=== PATIENT | female | born 1940 | race Caucasian/White ===

== ENCOUNTER → 2017-01-02 | Outpatient (CLI) | payer MEDICARE, OTHER ==
[~2017-01-02] MED LIST: ATORVASTATIN 4040 MG PO; CALCIUM WITH VI1 TAB PO; ENABLEX15 MG PO; FENOFIBRATE160 MG PO; GABAPENTIN100 M1 PO; ISOSORBIDE DINI30 MG PO; KLOR-CON 88 MEQ PO; LASIX 20MG. TAB20 MG PO; LASIX 40MG. TAB40 MG PO; LEVOTHYROXIN0.112 MG PO; LOSARTAN POTASS50 MG PO; Novolog100 U/ML SC; OMEPRAZOLE20 MG PO; OXYBUTYNIN CHLO10 MG PO; PRADAXA150 MG PO; PROZAC 20MG CAP20 MG PO; REGLAN 5MG TABLE5 MG PO; TRAMADOL50 M1 PO; VITAMIN B121000 MC2 SL; VITAMIN D31000 IU PO; XARELTO20 MG PO; ZYRTEC 10MG TAB10 MG PO; [UNRECOGNIZED DRUG - OTHER] IJ
== END ==
LOC: LAB 10:27
DX: E03.9 Hypothyroidism, unspecified (principal)

== ENCOUNTER 2017-01-12 16:39 | Observation (INO) | payer MEDICARE, OTHER ==
[~2017-01-12] VITALS: Ht 162.6 cm; Wt 104.8 kg
[~2017-01-12 16:39] MED LIST changes: -LEVOTHYROXIN0.112 MG PO; +LEVOTHYROXINE0.1 MG PO
[2017-01-12 16:40] VITALS: BP 155/78
--- NOTE | 2017-01-12 17:09 | Emergency Room Report ---
History of Present Illness Time Seen by [id number] Presenting Problem in Triage Pt arrived:Wheelchair Presenting Problem:SENT FROM PCP FOR CARDIAC WORKUP PT WITH RIGHT SIDE CHEST PAIN AND RIGHT SIDE SHOULDER PAIN X 2 DAYS Onset of symptoms date/time:/ or onset unknown for:MEDICAL HX UNKNOWN Treatment Prior to Arrival: SEEN BY PCP LEGAL COMPLIANCE OFFICER Provided by:PHYSICIAN Sepsis Risk Assessment: Temp: 97.8 B/P: 155/78 MAP: 103 Pulse: 84 Resp: 18 Recent fever? N Clinical Suspician of Infection? N Mental Status: 1 - Regular (Normal Baseline) Sepsis Risk:Low Sepsis Risk Have you (or family members/close friends) recently traveled outside the [place]? N If Yes, where/when: Have you had exposure to infectious disease within the past month? TB? Other? Specify: Source patient, RN notes reviewed, family, RN/MD Exam Limitations no limitations Comment This is an 76-year-old female patient sent by Cici in Dr Arias's office to the emergency room for evaluation of possible pulmonary embolism. Patient arrived to family physician's office complaining with RIGHT shoulder and upper abdominal pain radiating into the mid chest with the past 2 days, denying any shortness of breath, diaphoresis. Patient is currently on Xarelto due to a DVT of the LEFT lower extremity diagnosed a year ago. Patient denies any previous cardiac workup, any cardiac problems. ALLERGIES Coded Allergies: naproxen (Mild, 01/12/17) Uncoded Allergies: IV DYE (Mild, 01/12/17) Home Medications Reported Medications LEVOTHYROXINE SOD (Synthroid) 0.15 MG PO DAILY INSULIN ASPART (Novolog) 50 UNITS SC DAILY INSULIN ASPART (Novolog) 40 UNITS SC QHS MISCELLANEOUS (UNKNOWN MEDICATION) (Unknown Dose) TP WEEKLY Furosemide (Lasix 20MG) 20 MG PO DAILY #30 TAB Isosorbide Dinitrate 30 MG PO DAILY Fenofibrate (Fenofibrate 160MG (GEQ: Lofibra)) 160 MG PO DAILY Losartan Potassium (Losartan 50MG) 50 MG PO Potassium Chloride (Klor-Con 8) 8 MEQ PO DAILY Gabapentin (Gabapentin 100MG) 100 MG PO DAILY Atorvastatin Calcium (Atorvastatin 40MG) 40 MG PO QHS Oxybutynin Chloride (Oxybutynin Chloride ER) 10 MG PO DAILY Omeprazole (Omeprazole 20MG) 20 MG PO Q12H #60 CAP Cyanocobalamin (Vitamin B12) 1,000 MCG SL DAILY CHOLECALCIFEROL (VITAMIN D3) (Vitamin D) 1,000 IUNITS PO DAILY #100 TAB Cetirizine Hcl (All Day Allergy) 10 MG PO DAILY Fluoxetine Hcl (Prozac 20MG Capsule(Generic)) 20 MG PO DAILY Rivaroxaban (Xarelto) 20 MG PO DAILY Calcium/Cholecalciferol/Sodi (Calcium With Vitamin D 600 MG-400 Iu-5 MG) 1 TAB PO DAILY Metoclopramide Hcl (Reglan) 5 MG PO BID History Medical History General Hypertension? Yes Hyperlipidemia? Yes Thyroid Problems? Yes Diabetes? Yes Insulin Dependent: Yes Insulin Pump: No Home FSBS? Yes Immunization Hx Ped.Immunizations UTD Yes DT/Tetanus Unknown Surgical Hx Previous Surgery?Y FEMALE BLADDER TIE UP Family History Family Hx Diabetes Yes Hyperlipidemia Yes Cancer Yes TB Yes Social History Smoking Hx Smoker: Never Smoker Tobacco: No Type N/A Are you/the child exposed to second-hand smoke: No Alcohol Alcohol: No Review of Systems All Other Systems Reviewed and Negative Cardiovascular chest pain Musculoskeletal joint pain (right shoulder pain) Physical Exam Vital Signs Vital Signs Date Time Temp Pulse Resp B/P Pulse O2 O2 Flow FiO2 Ox Delivery Rate 01/12 1854 84 18 151/92 97 01/12 1852 98.2 84 18 151/92 97 ROOM AIR 01/12 1843 98.1 78 18 138/60 01/12 1805 98.1 78 18 138/60 94 01/12 1748 98.7 75 20 116/83 97 01/12 1640 97.8 84 18 155/78 99 General Appearance normal appearance, WD/WN, no apparent distress Respiratory Status Yes: trachea midline, chest symmetrical, non tender chest. No: respiratory distress. Lung Sounds bilateral: normal breath sounds, lungs clear. 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 No Comment 1699-case discussed with Dr. Arias, advised of patient's presentation and findings, need for hospitalization given the fact patient is ALLERGIC to IV contrast and she will require a VQ scan in the morning. Care transferred to Dr. Arias at this time. I will write temporary admission orders per hospital protocol at this time. Once patient arrived to floor, the unit nurse will contact Dr. Arias in order to obtain full inpatient admission orders. Results/Orders Laboratory Tests 01/12/171814: Creatine Kinase 220 H, CK-MB (CK-2) Rel Index 1.6, CK and CKMB Interp 3.5, Troponin I < 0.02 01/12/171654: Sodium 141, Potassium 4.0, Chloride 106, Carbon Dioxide 25, BUN 17, Creatinine 1.4 H, Estimated Creat Clear 55, Estimated GFR (MDRD) 36 L, Glucose 232 H, Calcium 9.3, Total Bilirubin 0.3, AST 20, ALT 24, Alkaline Phosphatase 75, Creatine Kinase 198 H, CK-MB (CK-2) Rel Index 2.1, CK and CKMB Interp 4.2 H, Troponin I < 0.02, B-Natriuretic Peptide 88, Total Protein 7.4, Albumin 3.8, Globulin 3.6 H, Albumin/Globulin Ratio 1.1, Amylase 48, Lipase 444 H, D-Dimer 453 *H, WBC 7.6, RBC 4.58, Hgb 14.0, Hct 42.4, MCV 92.6, RDW 13.8, Plt Count 323 , MPV 7.4, Gran % 52.0, Gran # 4.0, Lymphocytes % 39.1, Monocytes % 6.1, Eosinophils % 2.1, Basophils % 0.7, Lymphocytes # 3.0, Monocytes # 0.5, Eosinophils # 0.2, Basophils # 0.1, PUBS MCHC 33.1, MCH 30.7 Current Medication Orders Sig/Abelardo Start time Last Medication Dose Route Stop Time Status Admin Diagnostic Test (Pha) 1 EACH W/MEALS&HS 01/12 2100 AC 01/12 FS 03/13 Insulin Human [rDNA See Dose W/MEALS&HS 01/12 2100 AC 01/12 origin] Insts (1) SC 2030 Sodium Chloride 10 ML PRN PRN 01/12 1645 AC IV Dose Instructions: (1)Insulin Human [rDNA origin]: SEE ADMIN CRITERIA FOR LOW INTENSITY SS Orders Procedure Date/time Status NUC LUNG VENT & PERFUSION 01/13 0800 Active CARDIAC ENZYMES 01/12 2100 Complete ADMITTED PT IS ACTUALLY IN BED 01/12 1853 Active CARDIAC ENZYMES 01/12 1851 Complete Decision to admit 01/12 1715 Active 12 LEAD EKG-BESSON (INITIAL) 01/12 1644 Active ELECTROCARDIOGRAM REQUEST 01/12 1644 Active IV SALINE LOCK 01/12 1644 Active LIPASE 01/12 1644 Complete D-DIMER 01/12 1644 Complete CBC WITH AUTO DIFF 01/12 1644 Complete CARDIAC ENZYMES 01/12 1644 Complete CHEM 12 PROFILE 01/12 1644 Complete BRAIN NATRIURETIC PEPTIDE 01/12 1644 Complete AMYLASE 01/12 1644 Complete ADMIT PATIENT 01/12 UNK Active PULSE OXIMETRY REQUEST 01/12 UNK Active VITAL SIGNS 01/12 UNK Active SUPERVISOR VENDOR QUALITY 01/12 UNK Active POM NURSE FLETCHER HOSE ORDER 01/12 UNK Active CODE STATUS 01/12 UNK Active PATIENT ACTIVITY ORDER 01/12 UNK Active CM/EKG CM/bog worker Rhythm Normal Sinus Rhythm Rate 88 Ectopy No Comments No acute ischemic changes EKG rate, NSR, rhythm, no evid. of ischemic chgs, no ectopy, normal QRS, normal OH, normal EKG, no EKG for comparison, non-spec. ST/Twave chgs, ST elevation, ST depression, LBBB, RBBB, ectopy, abnormal Q waves XRAY/CT/US XRAY/CT/US XRAY chest XR interpretation by reviewed by me Xray Results no infiltrates, normal heart size, normal lung inflation allen BEN Score for N-Stemi/Angina BEN N-STEMI SCORE BEN N-STEMI SCORE Response Value Age of patient 65 yrs or more 1 Number of risk factors for CAD Presence of less than 3 0 Prior coronary artery stenosis (seen in angiography) Less than 50% 0 ST-Segment deviation on ECG (>1 min) Absent 0 Prior aspirin intake No ASA in the last 7 days 0 Severe anginal chest pain 2 or more episodes/24hr 1 Elevated cardiac markers(CK-MB or troponin) Absent 0 Total 2 Risk Stratification 0-2= Low Risk Patients Departure Departure Time of Disposition 1708 Disposition Still a Patient Clinical Impression Primary Impression: Chest pain Qualifiers: Chest pain type: unspecified Qualified Code: R07.9 - Chest pain, unspecified Condition STABLE Referrals Keith Arias MD (Family) ED Critical Care Critical Care No at 0059
[2017-01-12 17:11] LABS: LYMPH % 39.1 % (10-50.0)
--- OUTSIDE RECORDS SUMMARY | 2017-01-12 17:21 | External Medical Summary Rpt | CCD ---
Author Author , PELON Organization PEL[employer] Address Unknown Phone [email or web address] Purpose Continuity of Care Document - 01-02-2017 through 2016 Problems Code Diagnosis DOS Provider Status E03.9 HYPOTHYROID ISM, UNSPECIFIED E06.9 THYROIDITIS , UNSPECIFIED Z12.31 ENCNTR SCREEN MAMMOGRAM FOR MALIGNANT NEOPLASM OF BREAST Z78.0 ASYMPTOMATI C MENOPAUSAL STATE Results Labs Lab Lab Date Result Refere Interp Status Commen Order Detail nces retati t Range on Serum or plasma thyroid stimulating horm (01-09-2017 14:24) Serum 2 = 8.98 0.358-3 complet or 017 uIU/ml .740 ed plasma 14:24 thyroid stimula ting horm Serum or plasma free thyroxine (T4) justin (01-09-2017 14:24) Serum 2 = 1.18 0.76-1. complet or 017 ng/dL 46 ed plasma 14:24 free thyroxi ne (T4) justin Thyroxine (01-02-2017 10:30) Thyroxi = 17.3 4.7-13. complet ne 017 ug/dl 3 ed 10:30 Serum or plasma thyroid stimulating horm (01-02-2017 10:30) Serum 2 = 11.30 0.358-3 complet or 017 uIU/ml .740 ed plasma 10:30 thyroid stimula ting horm
--- OUTSIDE RECORDS SUMMARY | 2017-01-12 17:21 | External Medical Summary Rpt | CCD ---
Author Author , PELON BIRD Address Unknown Phone [email or web address] Immunization Name Date Rout CVX Reac Dose Comm Prov Is Faci e tion ent ider Refu lity Give sed n Infl 10-1 Intr 135 0.5 Hist D049 No D049 uenz 2-20 amus mL oric 01 01 a, 17 cula al High r Info rmat Dose ion - Sour ce Unsp ecif ied Tdap 06-1 Intr 115 0.5 Hist D049 No D049 , 6-20 amus mL oric 01 01 Adso 17 cula al rbed r Info rmat ion - Sour ce Unsp ecif ied
--- OUTSIDE RECORDS SUMMARY | 2017-01-12 17:21 | External Medical Summary Rpt | CCD ---
Author Author [employer] Organization [employer] Address Unknown Phone Unavailable Purpose Continuity of Care Document - through 2016
--- OUTSIDE RECORDS SUMMARY | 2017-01-12 17:21 | External Medical Summary Rpt | CCD ---
Author Author , PELON Organization PEL[employer] Address Unknown Phone [email or web address] Purpose Continuity of Care Document - 01-02-2017 [...]
--- OUTSIDE RECORDS SUMMARY | 2017-01-12 17:21 | External Medical Summary Rpt ---
Author Author PELON Henderson, HARISVINCENT [facility] Organization [employer] Address Unknown Phone Unavailable Results Thyroxine (T4) free [Mass/volume] in Serum or Plasma Observa Value Referen Units Interpr Notes Date tion ce etation Range Thyroxine 0.76 - ng/dL Normal No Dec 13 (T4) 1.46 informati 2017 2:24 free on in PM [Mass/vol source ume] in data Serum or Plasma Thyrotropin [Units/volume] in Serum or Plasma Observa Value Referen Units Interpr Notes Date tion ce etation Range Thyrotrop 0.358 - uIU/ml High No Dec 13 in 3.740 informati 2016 2:24 [Units/vo on in PM lume] in source Serum or data Plasma Thyroxine (T4) [Mass/volume] in Serum or Plasma Observa Value Referen Units Interpr Notes Date tion ce etation Range Thyroxine 4.7 - ug/dl High No Dec 6 (T4) 13.3 informati 2016 [Mass/vol on in 10:30 AM ume] in source Serum or data Plasma Thyrotropin [Units/volume] in Serum or Plasma Observa Value Referen Units Interpr Notes Date tion ce etation Range Thyrotrop 0.358 - uIU/ml High No Dec 6 in 3.740 informati 2016 [Units/vo on in 10:30 AM lume] in source Serum or data Plasma
--- OUTSIDE RECORDS SUMMARY | 2017-01-12 17:21 | External Medical Summary Rpt ---
Author Author PELON Henderson, HARISVINCENT [employer] Organization [employer] Address Unknown Phone Unavailable [...]
--- OUTSIDE RECORDS SUMMARY | 2017-01-12 17:21 | External Medical Summary Rpt | CCD ---
Author Author , PELON BIRD Address Unknown Phone [email or web address] Immunization Name Date Rout CVX Reac Dose [...]
[2017-01-12 17:33] LABS: BUN 17 mg/dL (7-18)
[2017-01-12 17:37] LABS: GFR (ESTIMATED) 36 ML/MIN (59-)
--- OUTSIDE RECORDS SUMMARY | 2017-01-12 17:44 | External Medical Summary Rpt | CCD ---
Author Author , PELON BIRD Address Unknown Phone [email or web address] Immunization Name Date Rout CVX Reac Dose [...]
--- OUTSIDE RECORDS SUMMARY | 2017-01-12 17:44 | External Medical Summary Rpt | CCD ---
Author Author , PELON BIRD Address Unknown Phone [email or web address] Immunization Name Date Rout CVX Reac Dose [...]
--- OUTSIDE RECORDS SUMMARY | 2017-01-12 17:44 | External Medical Summary Rpt ---
Author Author PELON Henderson, HARISVINCENT [employer] Organization [employer] Address Unknown Phone Unavailable [...]
--- OUTSIDE RECORDS SUMMARY | 2017-01-12 17:44 | External Medical Summary Rpt ---
Author Author PELON Henderson, HARISVINCENT [employer] Organization [employer] Address Unknown Phone Unavailable [...]
--- OUTSIDE RECORDS SUMMARY | 2017-01-12 17:44 | External Medical Summary Rpt | CCD ---
Author Author , PELON Organization PEL[employer] Address Unknown Phone [email or web address] Purpose Continuity of Care Document - 01-02-2017 through 2016 Problems Code Diagnosis DOS Provider Status E03.9 HYPOTHYROID ISM, UNSPECIFIED E06.9 THYROIDITIS , UNSPECIFIED Z12.31 ENCNTR SCREEN MAMMOGRAM FOR MALIGNANT NEOPLASM OF BREAST Z78.0 ASYMPTOMATI C MENOPAUSAL STATE Results Labs Lab Lab Date Result Refere Interp Status Commen Order Detail nces retati t Range on Serum or plasma free thyroxine (T4) justin (01-09-2017 14:24) Serum 2 = 1.18 0.76-1. complet or 017 ng/dL 46 ed plasma 14:24 free thyroxi ne (T4) justin Serum or plasma thyroid stimulating horm (01-09-2017 14:24) Serum 2 = 8.98 0.358-3 complet or 017 uIU/ml .740 ed plasma 14:24 thyroid stimula ting horm Thyroxine (01-02-2017 10:30) Thyroxi = 17.3 4.7-13. complet ne 017 ug/dl 3 ed 10:30 Serum or plasma thyroid stimulating horm (01-02-2017 10:30) Serum 01-02-2 = 11.30 0.358-3 complet or 017 uIU/ml .740 ed plasma 10:30 thyroid stimula ting horm
--- OUTSIDE RECORDS SUMMARY | 2017-01-12 17:44 | External Medical Summary Rpt | CCD ---
Author Author , PELON Organization PELON Address Unknown Phone [email or web address] Purpose Continuity of Care Document - 01-02-2017 [...]
--- NOTE | 2017-01-12 18:28 | RADIOLOGY REPORT PS360 ---
CHEST(2 VIEWS-NOT PORTABLE) HISTORY: Right-sided chest pain RIGHT SIDE CP ORDERING PHYSICIAN: Keith Arias MD PATIENT AGE: 76 years COMPARISON: 08/14/2015 FINDINGS: The cardiomediastinal silhouette and pulmonary vascularity are within normal limits. Atelectatic or fibrotic changes are present in the lower lobes, right middle lobe and lingula. No lobar consolidation or collapse.. No acute bony abnormalities. IMPRESSION: Bilateral lower lobe atelectasis/fibrosis otherwise negative
[2017-01-12 18:43] VITALS: BP 138/60
[2017-01-12 18:52] VITALS: BP 151/92
[2017-01-12] MEDS ORDERED: Novolog100 U/ML SC ×2 (18:55)
--- NOTE | 2017-01-12 19:21 | PHARMACY CLINIC NOTE ---
Patient Demographics Patient Demographics Admission date: 01/12/17 Date: 01/12/17 Time: 1920 Allergies Coded Allergies: naproxen (Mild, 01/12/17) Uncoded Allergies: IV DYE (Mild, 01/12/17) HEIGHT- FT: 5 IN: 4.00 K.809 VTE General Information Labs: Laboratory Tests 01/12 1655 Hematology Hgb (12.2 - 16.2 g/dL) 14.0 Hct (37.0 - 47.0 %) 42.4 Plt Count (142 - 424 K/mm3) 323 Disclaimer The following section includes nursing documentation that has been pulled in for pharmacy review. Patient's VTE score: 2 Patient's VTE Risk: VERY LOW RISK Clinical trial participant? No VTE prophylaxis NQF [id number] VTE prophylaxis ordered? Yes Type of prophylaxis/treatment: FLETCHER at 1921
[2017-01-12 20:01] VITALS: BP 158/87
[2017-01-13 00:02] VITALS: BP 109/59
[2017-01-13 04:00] VITALS: BP 106/64
[2017-01-13 07:52] VITALS: BP 142/57
[2017-01-13] MEDS ORDERED: LOSARTAN POTAS100 MG PO (08:32)
--- NOTE | 2017-01-13 08:32 | HISTORY AND PHYSICAL REPORT ---
History and Physical ([facility]) Date of admission: 01/12/17 Chief complaint: Chest pain History: History of Present Illness: Ms. Last is a 76yo female with a hx of diabetes, HLP, HTN, hypothyroidism, intermittent afib, and a hx of a left leg DVT. She presented to the office yesterday having right sided chest pain. She stated she had been having pain in her right shoulder blade for two days and then yesterday afternoon, she began having pain in the epigastric area and the entire right side of the chest radiating around to the back. Her sats were normal, however she felt SOA. She was sent to the ER for evaluation to r/o an AL and PE. She was admitted for observation and treatment. Past Medical History: Medical History: CAD? No Angina: No AL: No Hypertension? Yes Hyperlipidemia? Yes CHF? Yes DVT? Yes PE? No COPD? No Asthma? No Anemia? No GERD? Yes Gastric ulcers? No Thyroid Problems? Yes Hypothyroidism? Yes CVA? No Seizures? No Diabetes? Yes Insulin Dependent: Yes Insulin Pump: No Home FSBS? Yes Renal Insuffiency? No Stones? No GB Disease: No Hepatitis? No Sickle Cell Disease? No Migraines? No Cataracts? Yes Anxiety? Yes Depression? Yes Cancer? No Surgical history: Previous Surgery?Y 1. MONTSERRAT 2. Cyst in vaginal area 3. C-scope 4. Cataracts Medications: Reported Medications Omeprazole (Omeprazole 20MG) 20 MG PO DAILY Losartan Potassium (Losartan 100MG) 100 MG PO DAILY Furosemide (Lasix 40MG) 40 MG PO BID EXENATIDE MICROSPHERES (Bydureon Pen) 2 MG SC WEEKLY Pravastatin Sodium (Pravachol) 80 MG PO QHS Metoclopramide HCl (Reglan) 10 MG PO BID Solifenacin Succinate (Vesicare) 10 MG PO DAILY ROPINIROLE HCL (Requip 0.25MG) 0.25 MG PO QHS Aspirin (Adult Low Dose Aspirin EC) 81 MG PO DAILY DILTIAZEM HCL (Diltiazem 24HR ER) 180 MG PO DAILY LEVOTHYROXINE SOD (Synthroid) 0.15 MG PO DAILY INSULIN ASPART (Novolog) 50 UNITS SC DAILY INSULIN ASPART (Novolog) 40 UNITS SC QHS Isosorbide Dinitrate 30 MG PO DAILY Fenofibrate (Fenofibrate 160MG (GEQ: Lofibra)) 160 MG PO DAILY Potassium Chloride (Klor-Con 8) 8 MEQ PO DAILY Cyanocobalamin (Vitamin B12) 1,000 MCG SL DAILY CHOLECALCIFEROL (VITAMIN D3) (Vitamin D) 1,000 IUNITS PO DAILY #100 TAB Cetirizine Hcl (All Day Allergy) 10 MG PO DAILY Fluoxetine Hcl (Prozac 20MG Capsule(Generic)) 20 MG PO DAILY Calcium/Cholecalciferol/Sodi (Calcium With Vitamin D 600 MG-400 Iu-5 MG) 1 TAB PO DAILY Allergies: Coded Allergies: naproxen (Mild, 01/12/17) Uncoded Allergies: IV DYE (Mild, 01/12/17) Family History: Family history: Postive for: CAD, DM, HTN, cancer. Negative for: stroke. Social History: Smoking Hx Tobacco: No Smoker: Never Smoker Type: N/A Packs/day: N/A Are you exposed to second hand No Alcohol: Alcohol: No Hx of Drug Use: Drug Use? No Review of Systems: Constitutional No: fatigue, lethargy, malaise, weak. ENT No: nasal congestion, sore throat. Cardiovascular Positive for: chest pain. No: edema, palpitations. Respiratory Positive for: shortness of air. No: productive cough (sputum), wheezing. GI Positive for: abdominal pain. No: diarrhea, nausea, vomitting. (female) No: frequency, hematuria. Neurological No: headache, syncope, weakness. Musculoskeletal No: extremity pain, joint pain, myalgias. Physical Exam: Vital signs: 1ST Vital Signs Result Date Time Pulse Ox 99 01/12 1640 B/P 155/78 01/12 1640 Temp 97.8 01/12 1640 Pulse 84 01/12 1640 Resp 18 01/12 1640 O2 Delivery ROOM AIR 01/13 1852 Exam: General appearance: alert, awake, no acute distress Eyes: EOM's w/normal ROM, PERRLA ENT: nose normal, pharynx normal, dry mucous membranes Neck: non-tender, full range of motion, supple Cardiovascular: regular rate & rhythm Respiratory: clear to auscultation ABD: non-distended, normal bowel sounds, no rebound, soft, no guarding, ttp in the epigastric area and RUQ Extremities: trace pretibial edema bilaterally Musculoskeletal: equal muscle strength, motor intact, sensation intact Skin: normal color Neuro: normal mood/affect, oriented, speech clear Lab data: Labs: Laboratory Tests 01/13/17 0622: POC Glucose 141 H 01/12/17 2100: Creatine Kinase 180, CK-MB (CK-2) Rel Index 2.1, CK and CKMB Interp 3.7 H, Troponin I < 0.02 01/12/172026: POC Glucose 166 H 01/12/17 1815: Creatine Kinase 220 H, CK-MB (CK-2) Rel Index 1.6, CK and CKMB Interp 3.5, Troponin I < 0.02 01/12/17 1655: Sodium 141, Potassium 4.0, Chloride 106, Carbon Dioxide 25, BUN 17, Creatinine 1.4 H, Estimated Creat Clear 55, Estimated GFR (MDRD) 36 L, Glucose 232 H, Calcium 9.3, Total Bilirubin 0.3, AST 20, ALT 24, Alkaline Phosphatase 75, Creatine Kinase 198 H, CK-MB (CK-2) Rel Index 2.1, CK and CKMB Interp 4.2 H, Troponin I < 0.02, B-Natriuretic Peptide 88, Total Protein 7.4, Albumin 3.8, Globulin 3.6 H, Albumin/Globulin Ratio 1.1, Amylase 48, Lipase 444 H, D-Dimer 453 *H, WBC 7.6, RBC 4.58, Hgb 14.0, Hct 42.4, MCV 92.6, RDW 13.8, Plt Count 323 , MPV 7.4, Gran % 52.0, Gran # 4.0, Lymphocytes % 39.1, Monocytes % 6.1, Eosinophils % 2.1, Basophils % 0.7, Lymphocytes # 3.0, Monocytes # 0.5, Eosinophils # 0.2, Basophils # 0.1, PUBS MCHC 33.1, MCH 30.7 Radiology results: Results: CXR - Bilateral lower lobe atelectasis/fibrosis otherwise negative Diagnosis(es): 1. Chest pain Status: Acute 2. Abdominal pain Status: Acute 3. Elevated lipase Status: Acute 4. Elevated d-dimer Status: Acute 5. Elevated CPK Status: Acute 6. Diabetes 7. HTN (hypertension) 8. Hyperlipidemia Plan: CPK has normalized. Will recheck lipase. Will also get a RUQ U/S. She is scheduled for a VQ today to r/o a PE. TI has been normal. (Richelle Aguirre) Date of admission: 01/12/17 Diagnosis(es): 1. Chest pain Status: Acute 2. Abdominal pain Status: Acute 3. Elevated lipase Status: Acute 4. Elevated d-dimer Status: Acute 5. Elevated CPK Status: Acute 6. Diabetes 7. HTN (hypertension) 8. Hyperlipidemia Plan: Pt seen and examined. Concur with above assessment and plan. (Keith Arias MD) at 1112
[2017-01-13] MEDS ORDERED: LASIX 40MG. TAB40 MG PO (08:33)
[2017-01-13] MEDS ORDERED: BYDUREON PEN2 MG SC (08:35)
[2017-01-13] MEDS ORDERED: PRAVACHOL80 M1 PO (08:44)
[2017-01-13] MEDS ORDERED: REGLAN10 M2 PO (08:45)
[2017-01-13] MEDS ORDERED: VESICARE10 MG PO (08:46)
[2017-01-13] MEDS ORDERED: REQUIP0.25 MG PO (08:47)
[2017-01-13] MEDS ORDERED: ADULT LOW DOSE81 MG PO (08:48)
[2017-01-13] MEDS ORDERED: DILTIAZEM HCL180 MG PO (08:48)
[2017-01-13 09:52] VITALS: BP 142/57
--- NOTE | 2017-01-13 12:50 | RADIOLOGY REPORT PS360 ---
US RUQ-(ABD LTD)1ORGAN/QUAD/FU HISTORY: EPIGASTRIC AND RUQ PAIN Patient Age: 76 years: Female Ordering Physician: Keith Arias MD TECHNIQUE: Ultrasound right upper quadrant COMPARISON : CT abdomen pelvis 07/01/2014 FINDINGS Pancreas. Unremarkable LIVER... No biliary ductal dilatation. Portal vein unremarkable There is a focal slightly hyperechoic area anterior right lobe measuring up to 3.3 cm cm. I suspect this was vaguely present in retrospect on the prior CT 07/01/2014. Hypoechoic areas tend to be benign features and given its likely stability most likely hemangioma. A CT abdomen with contrast hemangioma protocol could further confirm such Common duct. Normal diameter 4 mm at hilum of liver. GALLBLADDER: 1.5 cm cm shadowing gallstone at dependent gallbladder. No gallbladder wall thickening. The gallbladder normal size. RIGHT KIDNEY.. Normal 10.4 cm length. No hydronephrosis nor mass IMPRESSION: Cholelithiasis. 1.5 cm gallstone evident Common duct normal Liver.: Focal Slight hyperechoic area right lobe measuring up to 3.3 cm anterior right lobe. Likely vaguely evident retrospect on 2015 CT. And fairly stable. . Suspect most likely benign hemangioma liver.. (CT hemangioma protocol with and without contrast would confirm)..
--- NOTE | 2017-01-13 14:41 | RADIOLOGY REPORT PS360 ---
[facility]C LUNG VENT PERFUSION HISTORY: CP,ALLERGY TO IV DYE; RULE OUT DVT Patient Age: 76 years: Female Ordering Physician: Keith Arias MD TECHNIQUE: Ventilation scan initially performed utilizing 37.5 mCi Tc DTPA and normal saline delivered is aerosol Perfusion scan was then performed utilizing MAA. The first dose of MAA injected infiltrative into the patient's arm 7.99 mCi. 11:47 AM. More compresses placed over this area to facilitate uptake. I would note that in a a is a macro aggregate albumin protein(and not a simple water-soluble contrast agent) and thus this could conceivably induce a a delayed inflammatory focus as the patient's could react to this albumin protein... The technologist has notified nursing staff of such A second dose MAA was ordered with 8.64 mCi MAA injected IV. 1422 hours. This yielded satisfactory images. COMPARISON : Chest PA and lateral 01/12/2017 FINDINGS Ventilation scan shows no significant findings. There is some activity within the stomach on this study and some minor central clumping which can be seen with central airway inflammation toward changes/bronchitis but nonspecific. Perfusion scan shows no significant perfusion defects. No evidence of pulmonary embolism. No significant ventilation/perfusion mismatch areas identified. Normal-appearing perfusion scan. IMPRESSION: No evidence of pulmonary embolism. No perfusion defects. Normal appearing perfusion scan. No ventilation/perfusion mismatch *Note. The patient's initial MAA radio labeled macroaggregated albumin IV dose infiltrated into patient's arm adjacent to the injection site. Please watch for any delayed inflammatory response about injection site resulting from this albumin protein. Thank you
[2017-01-13 15:32] VITALS: BP 163/67
[2017-01-13 16:41] VITALS: BP 163/67
--- NOTE | 2017-01-17 21:08 | DISCHARGE SUMMARY STANDARD ---
Discharge Summary ([facility]2) Date of admission: 01/12/17 Date of discharge: 01/13/17 Problem List: 1. Chest pain 2. Abdominal pain 3. Elevated lipase 4. Elevated d-dimer 5. Elevated CPK 6. Diabetes 7. HTN (hypertension) 8. Hyperlipidemia History of present illness: Ms. Last is a 76yo female with a hx of diabetes, HLP, HTN, hypothyroidism, intermittent afib, and a hx of a left leg DVT. She presented to the office of A having right sided chest pain. She stated she had been having pain in her right shoulder blade for two days and then she began having pain in the epigastric area and the entire right side of the chest radiating around to the back. Her sats were normal, however she felt SOA. She was sent to the ER for evaluation to r/o an MD and PE. She was admitted for observation and treatment. Exam on admission: General appearance: alert, awake, no acute distress Eyes: EOM's w/normal ROM, PERRLA ENT: nose normal, pharynx normal, dry mucous membranes Neck: non-tender, full range of motion, supple Cardiovascular: regular rate & rhythm Respiratory: clear to auscultation ABD: non-distended, normal bowel sounds, no rebound, soft, no guarding, ttp in the epigastric area and RUQ Extremities: trace pretibial edema bilaterally Musculoskeletal: equal muscle strength, motor intact, sensation intact Skin: normal color Neuro: normal mood/affect, oriented, speech clear Hospital Course: The patient's CXR showed nothing acute. Her cardiac enzymes were all normal. Her D-dimer was elevated and d/t her contrast allergy she had to have a VQ scan. It showed no PE. Her lipase was elevated on admission but returned to normal the next day. A RUQ U/S showed gallstones. It was felt she may have passed a gallstone causing her pain and her lipase to be elevated. Her symptoms all resolved and she was stable to be discharged home. She will f/u in the office of A and will possibly need a surgery referral. Discharge medications: Continue taking these medications: Isosorbide Dinitrate (Isosorbide Dinitrate) 30 MG TABLET 30 MILLIGRAM ORAL DAILY Fenofibrate (Fenofibrate 160MG (GEQ: Lofibra)) 160 MG TABLET 160 MILLIGRAM ORAL DAILY LEVOTHYROXINE SOD (Synthroid) 100 MCG TABLET 0.15 MILLIGRAM ORAL DAILY Potassium Chloride (Klor-Con 8) 8 MEQ TABLET.ER 8 Milliequivalent ORAL DAILY Omeprazole (Omeprazole 20MG) 20 MG CAPSULE. 20 MILLIGRAM ORAL DAILY Cyanocobalamin (Vitamin B12) 1,000 MCG TAB 1,000 MICROGRAM SUBLINGUAL DAILY CHOLECALCIFEROL (VITAMIN D3) (Vitamin D) 1,000 UNIT TABLET 1,000 INT. UNITS ORAL DAILY Qty = 100 Instructions: PLUS CALCIUM Cetirizine Hcl (All Day Allergy) 10 MG TABLET 10 MILLIGRAM ORAL DAILY Fluoxetine Hcl (Prozac 20MG Capsule(Generic)) 20 MG CAPSULE 20 MILLIGRAM ORAL DAILY Calcium/Cholecalciferol/Sodi (Calcium With Vitamin D 600 MG-400 Iu-5 MG) 1 TAB TAB 1 TABLET ORAL DAILY INSULIN ASPART (Novolog) 100 UNIT/1 ML CARTRIDGE 50 UNITS Subcutaneous Injection DAILY INSULIN ASPART (Novolog) 100 UNIT/1 ML CARTRIDGE 40 UNITS Subcutaneous Injection AT BEDTIME NIGHTLY Losartan Potassium (Losartan 100MG) 100 MG TABLET 100 MILLIGRAM ORAL DAILY Furosemide (Lasix 40MG) 40 MG TABLET 40 MILLIGRAM ORAL TWICE A DAY EXENATIDE MICROSPHERES (Bydureon Pen) 2 MG/0.65 ML PEN.INJCTR 2 MILLIGRAM Subcutaneous Injection Q WEEK (168 HRS) Pravastatin Sodium (Pravachol) 80 MG TABLET 80 MILLIGRAM ORAL AT BEDTIME NIGHTLY Metoclopramide HCl (Reglan) 10 MG TABLET 10 MILLIGRAM ORAL TWICE A DAY Solifenacin Succinate (Vesicare) 10 MG TABLET 10 MILLIGRAM ORAL DAILY ROPINIROLE HCL (Requip 0.25MG) 0.25 MG TABLET 0.25 MILLIGRAM ORAL AT BEDTIME NIGHTLY Aspirin (Adult Low Dose Aspirin EC) 81 MG TABLET. 81 MILLIGRAM ORAL DAILY DILTIAZEM HCL (Diltiazem 24HR ER) 180 MG CAP.ER.24H 180 MILLIGRAM ORAL DAILY Disposition: F/U with: Keith Arias MD Follow up: 4 DAYS Activity: Driving Diet: Continue same diet Discharge to: HOME Agency needed? N at [id number]
== END 2017-01-13 16:40 | disposition home or self-care (01) ==
LOC: ER 16:39 → 2ND 17:14 → ER 17:14 → 2ND 18:57
PROVIDERS: Emergency Medicine; Family Medicine
DX: R07.9 Chest pain, unspecified (principal); K80.80 Other cholelithiasis without obstruction; E11.9 Type 2 diabetes mellitus without complications; E78.5 Hyperlipidemia, unspecified; E03.9 Hypothyroidism, unspecified; I48.91 Unspecified atrial fibrillation; Z86.718 Personal history of other venous thrombosis and embolism; Z79.82 Long term (current) use of aspirin; Z79.4 Long term (current) use of insulin; Z79.899 Other long term (current) drug therapy; K21.9 Gastro-esophageal reflux disease without esophagitis; I11.0 Hypertensive heart disease with heart failure; I50.9 Heart failure, unspecified
CPT/HCPCS: A9540; A9567; G0378